=== PATIENT | female | born 1955 | race Caucasian/White ===

== ENCOUNTER 2024-09-29 19:24 | Inpatient (IN) | payer MEDICAID ==
[~2024-09-29] VITALS: Ht 188 cm; Wt 62.7 kg
[2024-09-29] MEDS: METHYLPREDNISOLONE SOD SUCC 125MG/2ML (ACT-O-VIAL) IV STA (20:45)
[2024-09-29] MEDS: MAGNESIUM 2 G PREMIX 50 ML IV ONE (20:46)
[2024-09-29] MEDS: SODIUM CHLORIDE 0.9% 1,000 ML IV ONE ×2 (20:52→22:46)
[2024-09-29 21:08] LABS: BASOPHILS % 0.2 % (0.0-2.0); EOSINOPHILS % 0.1 % (0.0-5.0); HEMATOCRIT. 36.2 % (36.0-48.0); HEMOGLOBIN. 11.4 g/dL (12.0-16.0); MEAN CORPUSCULAR HEMOGLOBIN 31.5 pg (28.0-32.0); MEAN CORPUSCULAR HGB CONC 31.6 g/dL (31.0-37.0); MEAN CORPUSCULAR VOLUME 99.8 fL (81.0-99.0); MEAN PLATELET VOLUME 8.5 fl (7.4-10.4); MONOCYTES % 7.2 % (2.0-8.0); NEUTROPHILS % 69.5 % (40.0-76.0); PLATELET 250 x1000/uL (130-400); RED BLOOD CELL COUNT 3.63 mill/uL (4.2-5.4); RED CELL DISTRIBUTION WIDTH 21.5 % (11.6-14.6); WHITE BLOOD COUNT 9.2 x1000/uL (4.5-11.0)
[2024-09-29 21:15] LABS: CHLORIDE 100 mEq/L (98-107); SODIUM 143 mEq/L (136-145)
[2024-09-29] MEDS ORDERED: AZITHROMYCIN 500MG/250ML 250 ML IV SCH (21:15)
[2024-09-29 21:16] LABS: CALCIUM 8.9 mg/dL (8.7-10.4); CARBON DIOXIDE 36 mEq/L (21-32)
[2024-09-29 21:21] LABS: CREATININE 2.2 mg/dL (0.6-1.0); GLUCOSE 89 mg/dL (70-105); UREA NITROGEN BLOOD 36 mg/dL (9-23)
[2024-09-29 21:25] LABS: PROTHROMBIN TIME 11.2 sec (9.6-11.0)
[2024-09-29] MEDS: IPRATROPIUM BROMIDE (0.02%) 0.5MG/2.5ML NEB HHN STA (21:28)
[2024-09-29] MEDS: ALBUTEROL (0.083%) 2.5MG/3ML NEB HHN SCH (21:28)
[2024-09-29 21:30] VITALS: PULSE 95; RESP 18; O2SAT 95
[2024-09-29 21:30] LABS: TROPONIN I HIGH SENSITIVITY 70 ng/L (3.0-34)
[2024-09-29] MEDS: CEFTRIAXONE 2GM/50ML 50 ML IV ONE (22:12)
[2024-09-29] MEDS: AZITHROMYCIN 500MG/250ML 250 ML IV NR (22:46)
[2024-09-29 23:29] VITALS: O2SAT 97
[2024-09-29] MEDS ORDERED: DOCUSATE SODIUM 100MG CAPSULE PO PRN (23:45)
[2024-09-29] MEDS ORDERED: GUAIFENESIN 200MG/10ML SUGAR FREE UDC PO PRN (23:45)
[2024-09-29] MEDS ORDERED: ONDANSETRON HCL 4MG/2ML INJ IV PRN (23:45)
[2024-09-29] MEDS ORDERED: LORAZEPAM 0.5MG TABLET PO PRN (23:45)
[2024-09-29] MEDS ORDERED: ACETAMINOPHEN 325MG TABLET PO PRN (23:45)
[2024-09-29] MEDS ORDERED: IPRATROPIUM/ALBUTEROL 0.5-3(2.5)MG/3ML NEB HHN PRN (23:45)
[2024-09-29] MEDS ORDERED: CEFTRIAXONE 2GM/50ML 50 ML IV SCH (23:45)
[2024-09-29 23:52] LABS: BG BASE EXCESS -4.8 mmol/L (-2.0-3.0); BG CARBOXYHEMOGLOBIN 0.8 % (0.5-1.5); BG DEOXYHEMOGLOBIN 2.5 % (0.0-5.0); BG FRACTION INSPIRED OXYGEN 100; BG HCO3 ACT 24.9 mmol/L (21.0-28.0); BG METHEMOGLOBIN 0.3 % (0.5-1.5); BG OXYGEN SATURATION 97.5 % (94.0-98.0); BG OXYHEMOGLOBIN 96.4 % (94.0-98.0); BG PCO2 71.8 mmHg (32.0-45.0); BG PH 7.158 (7.350-7.450); BG PO2 117.9 mmHg (83.0-108.0); BG SAMPLE SITE RIGHT BRACHIAL; BG TOTAL HEMOGLOBIN 11.5 g/dL (12.0-16.0); BG VENT MODE HIGH FLOW
[2024-09-30] VITALS (16 sets, daily range): BP systolic 105–122; BP diastolic 73–109; PULSE 96–101; RESP 16–35; TEMP 36.1–36.9; O2SAT 92–99
[2024-09-30] MEDS: HALOPERIDOL LACTATE 5MG/ML VIAL IM ONE (00:17)
[2024-09-30] MEDS ORDERED: KETOROLAC 15MG/ML VIAL IV PRN (00:30)
[2024-09-30] MEDS: SODIUM CHLORIDE 0.9% (SEPSIS BOLUS) IV ONE (01:00)
[2024-09-30] MEDS: DEXT 5%/0.45% NACL 1000ML 1,000 ML IV SCH (01:05)
[2024-09-30 03:33] LABS: BG CARBOXYHEMOGLOBIN 0.8 % (0.5-1.5); BG DEOXYHEMOGLOBIN 0.7 % (0.0-5.0); BG FRACTION INSPIRED OXYGEN 100; BG HCO3 ACT 22.6 mmol/L (21.0-28.0); BG METHEMOGLOBIN 0.6 % (0.5-1.5); BG OXYGEN SATURATION 99.3 % (94.0-98.0); BG OXYHEMOGLOBIN 97.9 % (94.0-98.0); BG PCO2 75.6 mmHg (32.0-45.0); BG PH 7.093 (7.350-7.450); BG PO2 223.8 mmHg (83.0-108.0); BG SAMPLE SITE LEFT RADIAL; BG TOTAL HEMOGLOBIN 11.2 g/dL (12.0-16.0); BG VENT MODE MASK - BIPAP
[2024-09-30 03:33] LABS: TRIGLYCERIDE 91 mg/dL (0-150)
[2024-09-30 03:34] LABS: LDL CHOLESTEROL 22 mg/dL (5-100)
[2024-09-30 03:35] LABS: ALANINE AMINOTRANSFERASE 123 IU/L (10-49); ALBUMIN 3.2 g/dL (3.2-4.8); ASPARTATE AMINOTRANSFERASE 269 IU/L (<34); BILIRUBIN DIRECT 0.4 mg/dL (<=3.0); BILIRUBIN TOTAL 0.6 mg/dL (0.1-1.0); CHOLESTEROL 78 mg/dL (<200); HDL CHOLESTEROL 34 mg/dL (>65); PROTEIN TOTAL 6.3 g/dL (6.0-8.3)
[2024-09-30] MEDS: METHYLPREDNISOLONE SOD SUCC 40MG/ML (ACT-O-VIAL) IV SCH (06:57)
[2024-09-30 07:00] LABS: POTASSIUM 4.6 mEq/L (3.5-5.1)
[2024-09-30 07:01] LABS: CALCIUM 7.9 mg/dL (8.7-10.4)
[2024-09-30 07:06] LABS: CREATININE 2.1 mg/dL (0.6-1.0)
[2024-09-30 07:07] LABS: CREATINE KINASE MB FRACTION 4.3 ng/mL (0.5-3.6)
[2024-09-30] MEDS ORDERED: PANTOPRAZOLE 40MG DR TABLET PO SCH (07:50)
[2024-09-30] MEDS ORDERED: MORPHINE SULFATE 2 MG/ML INJ (NOT FOR IM USE) IV PRN (08:45)
[2024-09-30] MEDS ORDERED: NALOXONE HCL 0.4MG/ML VIAL IV PRN (09:30)
[2024-09-30] MEDS: CEFTRIAXONE 2GM/50ML 50 ML IV SCH (09:32)
[2024-09-30] MEDS: ENOXAPARIN 30MG/0.3ML SYR SUBCUT SCH (09:32)
[2024-09-30] MEDS: AZITHROMYCIN 500MG/250ML 250 ML IV SCH (10:42)
[2024-09-30] MEDS: ACETAMINOPHEN 325MG TABLET PO PRN (12:19)
[2024-09-30] MEDS: IPRATROPIUM/ALBUTEROL 0.5-3(2.5)MG/3ML NEB HHN SCH (12:42)
[2024-09-30] MEDS: METHYLPREDNISOLONE SOD SUCC 125MG/2ML (ACT-O-VIAL) IV SCH (14:25)
[2024-09-30 17:20] LABS: CREATINE KINASE MB FRACTION 4.9 ng/mL (0.5-3.6)
[2024-09-30] MEDS: PANTOPRAZOLE SODIUM 40 MG/VIAL IV SCH (18:16)
[2024-09-30] MEDS ORDERED: SENN-371 MT (18:25)
[2024-09-30] MEDS ORDERED: MORP10SY6 MT (18:26)
[2024-09-30] MEDS ORDERED: NALO4SPR BOTHNSTRLS (18:28)
[2024-09-30] MEDS ORDERED: DEXT15LI31 MT (18:29)
[2024-09-30] MEDS ORDERED: SULFASALAZINE (18:30)
[2024-09-30] MEDS ORDERED: DULO30CA52 MT (18:30)
[2024-09-30] MEDS ORDERED: CHOL200016 (18:31)
[2024-09-30] MEDS ORDERED: HYDR200T35 MT (18:32)
[2024-09-30] MEDS ORDERED: PANT40TA51 MT (18:33)
[2024-09-30] MEDS ORDERED: [UNRECOGNIZED DRUG - OTHER] (18:33)
[2024-09-30] MEDS ORDERED: PREG50CA MT (18:34)
[2024-09-30] MEDS ORDERED: DICL100G32 TP (18:35)
[2024-09-30] MEDS ORDERED: ROSU40TA MT (18:35)
[2024-09-30] MEDS ORDERED: LOSA100T33 MT (18:36)
[2024-09-30] MEDS ORDERED: NINT150C PO (18:37)
[2024-10-01] VITALS (14 sets, daily range): BP systolic 86–139; BP diastolic 46–95; PULSE 54–95; RESP 7–29; TEMP 35.5–36.1; O2SAT 81–92
[2024-10-01] MEDS: SODIUM CHLORIDE 0.9% 500 ML IV ONE ×2 (08:00→09:00)
[2024-10-01 08:02] LABS: HEMATOCRIT 39.3 % (36.0-48.0); HEMOGLOBIN 11.3 g/dL (12.0-16.0); MEAN CORPUSCULAR HEMOGLOBIN 30.5 pg (28.0-32.0); MEAN CORPUSCULAR HGB CONC 28.7 g/dL (31.0-37.0); MEAN CORPUSCULAR VOLUME 106.3 fL (81.0-99.0); PLATELET 188 x1000/uL (130-400); RED CELL DISTRIBUTION WIDTH 22.5 % (11.6-14.6); WHITE BLOOD COUNT 21.2 x1000/uL (4.5-11.0)
[2024-10-01 08:31] LABS: CALCIUM 7.7 mg/dL (8.7-10.4)
[2024-10-01 09:07] LABS: CREATININE 2.9 mg/dL (0.6-1.0)
[2024-10-01 09:26] LABS: BG BASE EXCESS -10.1 mmol/L (-2.0-3.0); BG CARBOXYHEMOGLOBIN 2.4 % (0.5-1.5); BG DEOXYHEMOGLOBIN 13.3 % (0.0-5.0); BG FRACTION INSPIRED OXYGEN 100; BG HCO3 ACT 21.3 mmol/L (21.0-28.0); BG METHEMOGLOBIN 0.3 % (0.5-1.5); BG OXYGEN SATURATION 86.3 % (94.0-98.0); BG PCO2 82.2 mmHg (32.0-45.0); BG PH 7.032 (7.350-7.450); BG PO2 58.8 mmHg (83.0-108.0); BG SAMPLE SITE RIGHT BRACHIAL; BG TOTAL HEMOGLOBIN 10.5 g/dL (12.0-16.0); BG VENT MODE MASK - BIPAP
[2024-10-01] MEDS: DEXTROSE 50% WATER 50ML SYRINGE IV NR (11:08)
[2024-10-01] MEDS: INSULIN REGULAR (HUMULIN R) 1000UNITS/10ML VIAL IV NR (11:10)
[2024-10-01] MEDS: CALCIUM GLUCONATE 1GM PREMIX 50 ML IV NR (11:11)
[2024-10-01] MEDS ORDERED: SODIUM CHLORIDE 0.9% 250 ML IV NR ×2 (11:30→12:00)
[2024-10-01] MEDS ORDERED: AZITHROMYCIN 500MG/250ML 250 ML IV SCH (13:30)
[2024-10-01] MEDS: MORPHINE SULFATE 100 MG in DEXT 5% WATER 90 ML IV PRN (16:02)
== END 2024-10-01 17:00 | DRG 720 ==
LOC: ER 19:24 → MICUSO 23:09 → EDBEDREQTM 23:28 → EDBEDREQSVC 23:28 → EDBEDREQ 23:28 → 5EST 09-30 14:34
PROVIDERS: ADMIT Hospitalist; ATTEND Hospitalist
PROC: 5A0935A Assistance with Respiratory Ventilation, Less than 24 Consecutive Hours, High Flow/Velocity Cannula (ICD-10-PCS; principal; 2024-09-29)
PROC: 5A09457 Assistance with Respiratory Ventilation, 24-96 Consecutive Hours, Continuous Positive Airway Pressure (ICD-10-PCS; 2024-09-30)
DX: A41.9 Sepsis, unspecified organism (principal); J96.21 Acute and chronic respiratory failure with hypoxia; G93.41 Metabolic encephalopathy; I31.39 Other pericardial effusion (noninflammatory); I21.A1 Myocardial infarction type 2; I11.0 Hypertensive heart disease with heart failure; J18.9 Pneumonia, unspecified organism; I50.9 Heart failure, unspecified; N17.9 Acute kidney failure, unspecified; Z66 Do not resuscitate; K52.9 Noninfective gastroenteritis and colitis, unspecified; J84.10 Pulmonary fibrosis, unspecified; J96.22 Acute and chronic respiratory failure with hypercapnia; F32.A Depression, unspecified; J45.909 Unspecified asthma, uncomplicated; M06.9 Rheumatoid arthritis, unspecified; N32.89 Other specified disorders of bladder; Z99.81 Dependence on supplemental oxygen; Z51.5 Encounter for palliative care; Z90.49 Acquired absence of other specified parts of digestive tract; Z90.710 Acquired absence of both cervix and uterus
CPT/HCPCS: 36415; 36600; 71045; 74176; 76700; 80048; 80061; 80076; 82375; 82550; 82553; 82805; 83036; 83605; 83880; 84145; 84484; 85025; 85027; 86850; 86900; 93005; 94070; 94640; 94660; 98960; 99291; A4606; J0456; J0610; J0696; J1630; J1650; J1815; J2470; J2919; J2920; J3475; J7030